=== PATIENT | female | born 1955 | race Caucasian/White ===

== ENCOUNTER → 2019-08-11 | Outpatient (CLI) | payer OTHER ==
--- NOTE | 2019-08-12 12:41 | US ---
US THYROID CLINICAL STATEMENT: GOITER.. No palpable mass. No prior thyroid therapy or surgery. COMPARISON: None TECHNIQUE: Transcutaneous scanning, grayscale and Doppler modes. FINDINGS: Size right thyroid lobe: 4.4 x 2.0 x 1.5 cm Size left thyroid lobe: 3.7 x 1.4 x 1.3 cm Size isthmus: 0.3 cm Estimated total number of nodules greater than or equal to 1 cm: 1. Heterogeneous gland. No simple cysts or calcifications. Nodule 1: Size: 1.2 x 1.1 x 1.0 cm Location: Right Mid Composition: solid or almost completely solid: 2 points Echogenicity: hypoechoic: 2 points Shape: wider than tall: 0 points Margins: smooth: 0 points Echogenic foci: none: 0 points ACR Total Points: 4; ACR TI-RADS risk category: TR4 - moderately suspicious nodule. Nodule 2: Size: 0.9 x 0.8 x 0.6 cm Location: Right Lower Composition: solid or almost completely solid: 2 points Echogenicity: hypoechoic: 2 points Shape: taller than wide: 3 points Margins: smooth: 0 points Echogenic foci: none: 0 points ACR Total Points: 5; ACR TI-RADS risk category: TR4 - moderately suspicious nodule. Nodule 3: Size: 0.5 x 0.5 x 0.3 cm Location: Isthmus Mid Composition: solid or almost completely solid: 2 points Echogenicity: hypoechoic: 2 points Shape: wider than tall: 0 points Margins: smooth: 0 points Echogenic foci: none: 0 points ACR Total Points: 4; ACR TI-RADS risk category: TR4 - moderately suspicious nodule. Nodule 4: Size: 0.3 x 0.2 x 0.2 cm Location: Left Mid Composition: solid or almost completely solid: 2 points Echogenicity: hypoechoic: 2 points Shape: wider than tall: 0 points Margins: smooth: 0 points Echogenic foci: none: 0 points ACR Total Points: 2; ACR TI-RADS risk category: TR2 - nonsuspicious nodule. No dominant cyst soft tissue mass or distinct cyst in the surrounding soft tissues. IMPRESSION: 1. Nodule 1: ACR TI-RADS 2017 Category TR4. Recommend: Follow-up ultrasound in 1 year.. Recommendations based upon [facility] Best [facility] recommendations and ACR TI-RADS 2017 guidelines. Please see below*. 2. Nodule 2: ACR TI-RADS 2017 Category TR4. Recommend: Follow-up ultrasound in 1 year. 3. Nodule 3: ACR TI-RADS 2017 Category TR4. Recommend: No further follow-up. 4. Nodule 4: ACR TI-RADS 2017 Category TR4. Recommend: No further follow-up. Soft tissues around the thyroid gland are unremarkable. *ACR TI-RADS 2017 Recommendations for imaging follow-up of nodules: TR1: No FNA or follow up TR2: No FNA or follow up TR3: FNA if >/= 2.5 cm, follow up if 1.5 - 2.4 cm in 1, 3, and 5 years TR4: FNA if >/= 1.5 cm, follow up if 1.0 - 1.4 cm in 1, 2, 3, and 5 years TR5: FNA if >/= 1.0 cm, follow up if 0.5 - 0.9 cm every year for 5 years ACR TI-RADS recommends that no more than two nodules with the highest ACR TI-RADS total point should be biopsied and no more than four nodules should be followed. These recommendations do not apply to patients with increased risk for thyroid cancer or patients with symptomatic thyroid disease. Electronically signed by: Binu eBrg MD 08/12/2019 12:40 PM [employer]
== END | disposition home or self-care (01) ==
LOC: US 10:58
PROVIDERS: ATTEND Family Medicine
DX: E04.0 Nontoxic diffuse goiter (principal)

== ENCOUNTER 2020-04-29 10:22 | Emergency (ER) | payer MEDICARE, OTHER ==
[2020-04-29] MEDS ORDERED: SODIUM CHLORIDE 0.9% (FLUSH) 10 ML SYG IV PRN (10:33)
[2020-04-29] MEDS ORDERED: cefTRIAXone SODIUM 2 GM in SODIUM CHL 0.9% 100ML MINI-BAG 100 ML IVPB ONE (10:33)
[2020-04-29] MEDS ORDERED: SODIUM CHLORIDE 0.9% 1000ML 1,000 ML IVS ONE (10:33)
[2020-04-29] MEDS ORDERED: SODIUM CHLORIDE 0.9% 1000ML 1,000 ML ONE (10:40)
--- NOTE | 2020-04-29 10:40 | ED.PDOC ---
History of Present Illness - General Chief Complaint: General Stated Complaint: Possible sepsis Time Seen by Provider: 04/29/20 10:26 Source: patient, RN notes reviewed, Vital Signs reviewed, EMS notes reviewed, family, retirement records Exam Limitations: other - History of dementia - History of Present Illness Initial Comments: This is a 64-year-old female with history of pick's disease and advanced dementia sent from assisted living facility for increased confusion, tachycardia, reported hypotension. PCP was concerned about possible sepsis. She had a telehealth visit from her PCP today, she was tachycardic in the 120s and reportedly hypotensive, but do not know what her recorded blood pressures were. She was sent to the emergency department without any paperwork. Nursing staff states that she is been more confused than her baseline, but she does have advanced dementia at baseline and her mental status varies from day-to-day.Assisted-living staff also state "no chance of exposure to COVID-19". Allergies/Adverse Reactions: Allergies NO KNOWN ALLERGY Allergy (Verified 04/29/20 10:27) Home Medications: Ambulatory Orders Acetaminophen [Tylenol] 1 - 2 tablet PO PRN PRN 12/23/18 Fexofenadine HCl [Allergy 24-Hr] 180 mg PO BEDTIME 12/23/18 Polyethylene Glycol 3350 [Miralax] 17 gm PO RANGEL-OTH-DAY 12/23/18 Risperidone 0.5 mg PO BID 12/23/18 Carbamide Peroxide Otic [Debrox Otic] 6.5 % OT PRN 04/29/20 Cephalexin Monohydrate [Keflex] 500 mg PO Q12H #10 cap 04/29/20 Donepezil HCl [Aricept] 5 mg PO BEDTIME 04/29/20 Meloxicam 7.5 mg PO BID 04/29/20 Polyethylene Glycol 3350 [Miralax] 17 gm PO DAILY PRN 04/29/20 Potassium Chloride Tab [K-Dur] 40 meq PO DAILY 7 Days #14 tab 04/29/20 Sertraline HCl [Zoloft] 100 mg PO BEDTIME 04/29/20 Review of Systems - Review of Systems Unable to Obtain Due To: dementia Past Medical History (General) - Patient Medical History Hx Congestive Heart Failure: No Hx Diabetes: No Hx MRSA: No Family Medical History - Family History Mother Family History: Unknown Living Status: Unknown Physical Exam - Physical Exam General Appearance: Alert, Frail, No apparent distress Ears, Nose, Throat: hearing grossly normal, normal ENT inspection Neck: non-tender, full range of motion Respiratory: lungs clear, normal breath sounds, no respiratory distress, no accessory muscle use Cardiovascular/Chest: normal peripheral pulses, regular rate, rhythm, no edema, no gallop, no JVD, tachycardia Peripheral Pulses: radial,right: 2+, radial,left: 2+ Gastrointestinal/Abdominal: normal bowel sounds, non tender, soft Back Exam: normal inspection, no CVA tenderness, no vertebral tenderness Extremity: normal range of motion, non-tender, normal inspection Neurologic: no motor/sensory deficits, normal mood/affect, other - Oriented to person only, disoriented to place and time Skin Exam: normal color, warm/dry Progress - Progress Progress: 04/29/20 10:56 I suspect severe sepsis at this time 04/29/20 12:17 Rechecked. Sepsis recheck performed at this time. Cap refill less than 2 seconds, BP normal, heart rate down to low 100s. We will continue to monitor 04/29/20 14:02 Rechecked. Discussed lab findings and plan for discharge home. Discussed plan for p.o. potassium repletion and antibiotics for suspected UTI. Urine culture is pending. Strict warnings given to return the emergency room for worsening changes in mental status, intractable vomiting, fever, chest pain, shortness of breath, or any other concerns DDX: Sepsis, UTI, pneumonia, dehydration MDM: Patient presenting with tachycardia, possible sepsis on initial vital signs. She does have what appears to be a UTI on her UA, K is also low, mag/phosphorus are normal. K was repleted p.o., will continue p.o. repletion at home for the next several days as well as course of antibiotics. Urine cultures pending. Recommended follow-up with PCP in 2 to 3 days for recheck. Strict warnings given to return the emergency room for worsening symptoms. Sister has been at the bedside Dariusz Ko DO [facility] # [id number] - Results/Orders Results/Orders: Procedure: XR CHEST 1 VIEW Exam Date: 04/29/2020 Ordering Provider: Dariusz Ko Clinical Indication: AMS, possible sepsis Comparison: None Findings: Cardiomediastinal silhouette is within normal limits. No focal lung consolidation. No pleural effusion. No pneumothorax. No acute osseous abnormality. Impression: 1. No acute abnormality in the chest. Electronically signed by: Wyatt Clemens MD 04/29/2020 11:08 AM CDT - 1575 04/29/20 10:33 Telemetry .ONCE Sodium Chloride 0.9% (Flush) [Saline Flush Syringe] 10 ml IV PRN PRN EKG Stat Pulse Ox Stat 04/29/20 10:53 RESPIRATORY PANEL 2 Stat 04/29/20 10:55 BLOOD CULTURE Stat 04/29/20 12:36 URINE CULTURE W/COLONY COUNT Stat 04/29/20 12:43 LACTIC ACID Q2H Laboratory Results - last 24 hr 04/29/20 04/29/20 04/29/20 10:45 10:45 10:45 WBC 7.0 RBC 4.98 Hgb 14.9 Hct 41.7 MCV 83.7 MCH 29.8 MCHC 35.6 RDW 14.4 Plt Count 215 MPV 8.2 Absolute Neuts (auto) 5.10 Absolute Lymphs (auto) 1.30 Absolute Monos (auto) 0.60 Absolute Eos (auto) 0.00 Absolute Basos (auto) 0.00 Neutrophils % 72.2 Lymphocytes % 18.6 L Monocytes % 8.2 Eosinophils % 0.3 L Basophils % 0.7 PT 10.8 INR 1.09 PTT (SP) 24.5 Sodium 138 Potassium 2.5 L Chloride 94 L Carbon Dioxide 32 H Anion Gap 14.5 BUN 21 H Creatinine 0.96 BUN/Creatinine Ratio 21.9 H Random Glucose 121 H Serum Osmolality 279.9 Lactic Acid Calcium 9.5 Phosphorus Magnesium Total Bilirubin 1.1 H AST 22 ALT 14 Alkaline Phosphatase 85 Creatine Kinase 55 CK-MB (CK-2) 1.0 CK-MB (CK-2) % Not Reportable Troponin I < 0.02 Serum Total Protein 7.3 Albumin 4.3 Globulin 3.0 Albumin/Globulin Ratio 1.4 Urine Color Urine Appearance Urine pH Ur Specific [place] Urine Protein Urine Glucose (UA) Urine Ketones Urine Blood Urine Nitrite Urine Bilirubin Urine Urobilinogen Ur Leukocyte Esterase Urine RBC Urine WBC Ur Epithelial Cells Urine Bacteria Urine Mucus 04/29/20 04/29/20 04/29/20 10:45 10:45 12:25 WBC RBC Hgb Hct MCV MCH MCHC RDW Plt Count MPV Absolute Neuts (auto) Absolute Lymphs (auto) Absolute Monos (auto) Absolute Eos (auto) Absolute Basos (auto) Neutrophils % Lymphocytes % Monocytes % Eosinophils % Basophils % PT INR PTT (SP) Sodium Potassium Chloride Carbon Dioxide Anion Gap BUN Creatinine BUN/Creatinine Ratio Random Glucose Serum Osmolality Lactic Acid 1.5 Calcium Phosphorus 3.5 Magnesium 1.8 Total Bilirubin AST ALT Alkaline Phosphatase Creatine Kinase CK-MB (CK-2) CK-MB (CK-2) % Troponin I Serum Total Protein Albumin Globulin Albumin/Globulin Ratio Urine Color Yellow Urine Appearance Clear Urine pH 6.0 Ur Specific [place] 1.020 Urine Protein Trace Urine Glucose (UA) Negative Urine Ketones Trace Urine Blood Trace-lysed H Urine Nitrite Negative Urine Bilirubin Moderate Urine Urobilinogen 1.0 Ur Leukocyte Esterase Negative Urine RBC 5-10 H Urine WBC 3-5 H Ur Epithelial Cells 10-20 Urine Bacteria Rare Urine Mucus Moderate Respiratory panel 2 all negative Departure - Departure Clinical Impression: Acute cystitis with hematuria, Advanced dementia, Hypokalemia Disposition: Discharge to Home or Self Care Condition: Fair Departure Forms: ED Discharge - Pt. Copy, Patient Portal Self Enrollment Diet: resume usual diet Activity: increase activity as tolerated Referrals: Campbell Vega MD [Primary Care Provider] - 1-5 Days Prescriptions: Potassium Chloride Tab [K-Dur] 40 meq PO DAILY 7 Days #14 tab Cephalexin Monohydrate [Keflex] 500 mg PO Q12H #10 cap Home Medications: Ambulatory Orders Acetaminophen [Tylenol] 1 - 2 tablet PO PRN PRN 12/23/18 Fexofenadine HCl [Allergy 24-Hr] 180 mg PO BEDTIME 12/23/18 Polyethylene Glycol 3350 [Miralax] 17 gm PO RANGEL-OTH-DAY 12/23/18 Risperidone 0.5 mg PO BID 12/23/18 Carbamide Peroxide Otic [Debrox Otic] 6.5 % OT PRN 04/29/20 Cephalexin Monohydrate [Keflex] 500 mg PO Q12H #10 cap 04/29/20 Donepezil HCl [Aricept] 5 mg PO BEDTIME 04/29/20 Meloxicam 7.5 mg PO BID 04/29/20 Polyethylene Glycol 3350 [Miralax] 17 gm PO DAILY PRN 04/29/20 Potassium Chloride Tab [K-Dur] 40 meq PO DAILY 7 Days #14 tab 04/29/20 Sertraline HCl [Zoloft] 100 mg PO BEDTIME 04/29/20
--- NOTE | 2020-04-29 11:10 | RAD ---
Procedure: XR CHEST 1 VIEW Exam Date: 04/29/2020 Ordering Provider: Dariusz Ko Clinical Indication: AMS, possible sepsis Comparison: None Findings: Cardiomediastinal silhouette is within normal limits. No focal lung consolidation. No pleural effusion. No pneumothorax. No acute osseous abnormality. Impression: 1. No acute abnormality in the chest. Electronically signed by: Wyatt Clemens MD 04/29/2020 11:08 AM CDT
[2020-04-29] MEDS ORDERED: POTASSIUM CHLORIDE 20 MEQ TAB PO ONE (11:23)
[2020-04-29] MEDS ORDERED: SODIUM CHLORIDE 0.9% 500ML 500 ML IVS ONE (11:24)
[2020-04-29 13:15] VITALS: O2SAT 98
[2020-04-29 14:37] VITALS: BP 129/87; TEMP 96.9
== END 2020-04-29 14:37 | disposition home or self-care (01) ==
LOC: ER 10:22
DX: N30.01 Acute cystitis with hematuria (principal); E87.6 Hypokalemia; G31.01 Pick's disease; F02.80 Dementia in other diseases classified elsewhere, unspecified severity, without behavioral disturbance, psychotic disturbance, mood disturbance, and anxiety; Z79.899 Other long term (current) drug therapy
CPT/HCPCS: 36415; 71045; 80053; 81001; 82550; 82553; 83605; 83735; 84100; 84484; 85025; 85610; 85730; 87040; 87086; 87088; 87186; 87635; 93005; 94760; J0696; J7030; J7040; J7050

== ENCOUNTER → 2020-05-06 | Outpatient (CLI) | payer MEDICARE | LOC: BFHH 11:02 | PROVIDERS: ATTEND Family Medicine | DX: A41.9 Sepsis, unspecified organism (principal); E03.9 Hypothyroidism, unspecified ==

== ENCOUNTER → 2020-05-12 | Outpatient (CLI) | payer MEDICARE | END | disposition home or self-care (01) | LOC: GMAJ 14:28 | PROVIDERS: ATTEND Family Medicine | DX: E03.9 Hypothyroidism, unspecified (principal) ==

== ENCOUNTER → 2020-07-28 | Outpatient (CLI) | payer MEDICARE | LOC: BFHH 13:35 | PROVIDERS: ATTEND Family Medicine | DX: G31.01 Pick's disease (principal); F02.80 Dementia in other diseases classified elsewhere, unspecified severity, without behavioral disturbance, psychotic disturbance, mood disturbance, and anxiety; Z87.440 Personal history of urinary (tract) infections; R53.1 Weakness ==

== ENCOUNTER 2020-08-04 13:17 | Emergency (ER) | payer MEDICARE ==
--- NOTE | 2020-08-04 14:12 | RAD ---
EXAM DESCRIPTION: Chest,1 View CLINICAL HISTORY: covid COMPARISON: April 29, 2020 IMPRESSION: Single AP portable upright view of the chest shows cardiac silhouette and pulmonary vasculature to be within normal limits. Lungs are normally aerated and clear. No obvious pleural effusion or pneumothorax is seen. Electronically signed by: Pollo Ramos MD 08/04/2020 2:10 PM [facility]
[2020-08-04] MEDS ORDERED: PENICILLIN BENZATHINE 1.2 MU 1.2 MU/2 ML SYG IM ONE (14:18)
[2020-08-04] MEDS ORDERED: predniSONE 20 MG TAB PO ONE (15:03)
[2020-08-04] MEDS ORDERED: AZITHROMYCIN 250 MG TAB PO ONE (15:03)
--- NOTE | 2020-08-04 15:07 | ED.PDOC ---
History of Present Illness - General Chief Complaint: General Stated Complaint: parisrobetsy, COVID + Time Seen by Provider: 08/04/20 13:26 Source: patient Exam Limitations: clinical condition - History of Present Illness Initial Comments: The patient is a 65-year-old female sent to the emergency room secondary to being Covid positive from the long-term care facility. Patient does have a mild sore throat and apparently did test positive for strep throat. No respiratory distress. Oxygen saturations ranged between 94 and 99% on room air. No increased work of breathing. She does have dementia but no obvious change in baseline mental status. No nausea or vomiting. No rash. No chest pain. Timing/Duration: unsure Severity: mild Improving Factors: nothing Worsening Factors: nothing Associated Symptoms: denies symptoms Allergies/Adverse Reactions: Allergies NO KNOWN ALLERGY Allergy (Verified 04/29/20 10:27) Home Medications: Ambulatory Orders Acetaminophen [Tylenol] 1 - 2 tablet PO PRN PRN 12/23/18 Fexofenadine HCl [Allergy 24-Hr] 180 mg PO BEDTIME 12/23/18 Polyethylene Glycol 3350 [Miralax] 17 gm PO RANGEL-OTH-DAY 12/23/18 Risperidone 0.5 mg PO BID 12/23/18 Carbamide Peroxide Otic [Debrox Otic] 6.5 % OT PRN 04/29/20 Cephalexin Monohydrate [Keflex] 500 mg PO Q12H #10 cap 04/29/20 Donepezil HCl [Aricept] 5 mg PO BEDTIME 04/29/20 Meloxicam 7.5 mg PO BID 04/29/20 Polyethylene Glycol 3350 [Miralax] 17 gm PO DAILY PRN 04/29/20 Potassium Chloride Tab [K-Dur] 40 meq PO DAILY 7 Days #14 tab 04/29/20 Sertraline HCl [Zoloft] 100 mg PO BEDTIME 04/29/20 Azithromycin 500 mg PO DAILY #5 tab 08/04/20 Potassium Chloride [Potassium Chloride ER] 20 meq PO DAILY #14 tab 08/04/20 predniSONE [Prednisone] 20 mg PO DAILY #5 tab 08/04/20 Review of Systems - Review of Systems Constitutional: States: malaise EENTM: States: nose congestion, throat pain Respiratory: States: no symptoms reported Cardiology: States: no symptoms reported Gastrointestinal/Abdominal: States: no symptoms reported Genitourinary: States: no symptoms reported Musculoskeletal: States: no symptoms reported Skin: States: no symptoms reported Neurological: States: no symptoms reported Endocrine: States: no symptoms reported Past Medical History (General) - Patient Medical History Hx Seizures: No Hx Stroke: No Hx Dementia: Yes Hx Asthma: No Hx of COPD: No Hx Cardiac Disorders: No Hx Congestive Heart Failure: No Hx Pacemaker: No Hx Hypertension: No Hx Thyroid Disease: No Hx Diabetes: No Hx Gastroesophageal Reflux: No Hx Renal Disease: No Hx Cancer: No Hx of HIV: No Hx Hepatitis C: No Hx MRSA: No - Vaccination History Hx Tetanus, Diphtheria Vaccination: Yes Hx Influenza Vaccination: Yes Hx Pneumococcal Vaccination: Yes - Social History Hx Tobacco Use: Yes Hx Alcohol Use: No Hx Substance Use: No Hx Depression: No Family Medical History - Family History Mother Family History: Unknown Living Status: Unknown Physical Exam - Physical Exam General Appearance: Alert, Comfortable, No apparent distress Eye Exam: bilateral normal Ears, Nose, Throat: hearing grossly normal, nasal congestion, pharyngeal erythema Neck: non-tender, supple Respiratory: lungs clear, normal breath sounds, no respiratory distress, no accessory muscle use Cardiovascular/Chest: normal peripheral pulses, no edema Peripheral Pulses: radial,right: 2+, radial,left: 2+ Gastrointestinal/Abdominal: non tender, soft Rectal Exam: deferred Back Exam: no CVA tenderness, no vertebral tenderness Extremity: normal range of motion, normal inspection, no calf tenderness 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 The patient appears to be tolerating it quite well. She is also tested positive for strep throat. She has been given a dose of Bicillin LA here. She will also be placed on 5 days of oral azithromycin and 5 days of oral prednisone. She does have a mildly low p otassium and will be written for a prescription to take as well over the coming week. The patient is going to be discharged to a [facility] facility for continued care. Obviously if the patient is worsening in any way then a repeat evaluation would be warranted. [email or web address] - Results/Orders Results/Orders: EKG shows normal sinus rhythm at 73 bpm. Mild right axis deviation. Normal R wave progression. No ST segment or T wave changes indicative of acute ischemia. No widening of the QRS complex. Chest x-ray shows no acute pathology. Laboratory Results - last 24 hr 08/04/20 08/04/20 08/04/20 13:45 13:45 13:45 WBC 3.5 L RBC 4.56 Hgb 13.8 Hct 39.0 MCV 85.6 MCH 30.2 MCHC 35.3 RDW 13.7 Plt Count 130 MPV 7.9 Absolute Neuts (auto) 2.30 Absolute Lymphs (auto) 0.90 L Absolute Monos (auto) 0.30 Absolute Eos (auto) 0.00 Absolute Basos (auto) 0.00 Neutrophils % 66.4 Lymphocytes % 24.9 Monocytes % 8.2 Eosinophils % 0.2 L Basophils % 0.3 PT INR PTT (SP) Fibrinogen D-Dimer, Quantitative Sodium 140 Potassium 3.2 L Chloride 100 L Carbon Dioxide 29 Anion Gap 14.2 BUN 19 H Creatinine 0.88 BUN/Creatinine Ratio 21.6 H Random Glucose 94 Serum Osmolality 281.4 Lactic Acid Calcium 8.5 Ferritin 667.1 H Total Bilirubin 0.8 AST 20 ALT 15 Alkaline Phosphatase 85 LD Total 130 Creatine Kinase 23 L CK-MB (CK-2) 0.4 CK-MB (CK-2) % Not Reportable Troponin I < 0.02 C-Reactive Protein 1.9 H B-Natriuretic Peptide < 15.0 Serum Total Protein 7.2 Albumin 4.1 Globulin 3.1 Albumin/Globulin Ratio 1.3 08/04/20 08/04/20 13:45 13:45 WBC RBC Hgb Hct MCV MCH MCHC RDW Plt Count MPV Absolute Neuts (auto) Absolute Lymphs (auto) Absolute Monos (auto) Absolute Eos (auto) Absolute Basos (auto) Neutrophils % Lymphocytes % Monocytes % Eosinophils % Basophils % PT 10.4 INR 1.05 PTT (SP) 27.0 Fibrinogen 367 D-Dimer, Quantitative < 131.0 L Sodium Potassium Chloride Carbon Dioxide Anion Gap BUN Creatinine BUN/Creatinine Ratio Random Glucose Serum Osmolality Lactic Acid 1.0 Calcium Ferritin Total Bilirubin AST ALT Alkaline Phosphatase LD Total Creatine Kinase CK-MB (CK-2) CK-MB (CK-2) % Troponin I C-Reactive Protein B-Natriuretic Peptide Serum Total Protein Albumin Globulin Albumin/Globulin Ratio Departure - Departure Clinical Impression: Coronavirus infection, unspecified, Hypokalemia, Strep throat Disposition: Discharge to SNF Condition: Fair Departure Forms: ED Discharge - Pt. Copy, Patient Portal Self Enrollment Instructions: Coronavirus Disease 2019 (COVID-19) Diet: diabetic diet Activity: increase activity as tolerated Referrals: Campbell Vega MD [Primary Care Provider] - 1-2 Weeks Prescriptions: Azithromycin 500 mg PO DAILY #5 tab Potassium Chloride [Potassium Chloride ER] 20 meq PO DAILY #14 tab predniSONE [Prednisone] 20 mg PO DAILY #5 tab Home Medications: Ambulatory Orders Acetaminophen [Tylenol] 1 - 2 tablet PO PRN PRN 12/23/18 Fexofenadine HCl [Allergy 24-Hr] 180 mg PO BEDTIME 12/23/18 Polyethylene Glycol 3350 [Miralax] 17 gm PO RANGEL-OTH-DAY 12/23/18 Risperidone 0.5 mg PO BID 12/23/18 Carbamide Peroxide Otic [Debrox Otic] 6.5 % OT PRN 04/29/20 Cephalexin Monohydrate [Keflex] 500 mg PO Q12H #10 cap 04/29/20 Donepezil HCl [Aricept] 5 mg PO BEDTIME 04/29/20 Meloxicam 7.5 mg PO BID 04/29/20 Polyethylene Glycol 3350 [Miralax] 17 gm PO DAILY PRN 04/29/20 Potassium Chloride Tab [K-Dur] 40 meq PO DAILY 7 Days #14 tab 04/29/20 Sertraline HCl [Zoloft] 100 mg PO BEDTIME 04/29/20 Azithromycin 500 mg PO DAILY #5 tab 08/04/20 Potassium Chloride [Potassium Chloride ER] 20 meq PO DAILY #14 tab 08/04/20 predniSONE [Prednisone] 20 mg PO DAILY #5 tab 08/04/20 Additional Instructions: The patient is a 65-year-old female sent from the long-term secondary to coronavirus infection. The patient appears to be tolerating it quite well. She is also tested positive for strep throat. She has been given a dose of Bicillin LA here. She will also be placed on 5 days of oral azithromycin and 5 days of oral prednisone. She does have a mildly low potassium and will be written for a prescription to take as well over the coming week. The patient is going to be discharged to a [facility] facility for continued care. Obviously if the patient is worsening in any way then a repeat evaluation would be warranted.
[2020-08-04 16:02] VITALS: BP 116/72; TEMP 97.8; O2SAT 97
== END 2020-08-04 16:10 ==
LOC: ER 13:17
DX: J02.0 Streptococcal pharyngitis (principal); U07.1 COVID-19; E87.6 Hypokalemia; F03.90 Unspecified dementia, unspecified severity, without behavioral disturbance, psychotic disturbance, mood disturbance, and anxiety; Z87.891 Personal history of nicotine dependence; Z79.899 Other long term (current) drug therapy
CPT/HCPCS: 36415; 71045; 80053; 82550; 82553; 82728; 83605; 83615; 83880; 84484; 85025; 85379; 85384; 85610; 85730; 86140; 87040; 93005; J0561; J7512; Q0144

== ENCOUNTER → 2020-09-01 | Outpatient (CLI) | payer MEDICARE | LOC: BFHH 13:19 | PROVIDERS: ATTEND Family Medicine | DX: G31.01 Pick's disease (principal); E87.6 Hypokalemia; F02.80 Dementia in other diseases classified elsewhere, unspecified severity, without behavioral disturbance, psychotic disturbance, mood disturbance, and anxiety; U07.1 COVID-19; R53.81 Other malaise; E78.49 Other hyperlipidemia; I25.10 Atherosclerotic heart disease of native coronary artery without angina pectoris ==

== ENCOUNTER → 2020-09-12 | Outpatient (CLI) | payer MEDICARE | LOC: BFHH 14:02 | PROVIDERS: ATTEND Family Medicine | DX: N39.0 Urinary tract infection, site not specified (principal) ==